=== PATIENT | male | born 1995 | race African-American/Black ===

== ENCOUNTER 2020-10-03 23:44 | Emergency (ER) | payer OTHER ==
[2020-10-04 00:01] VITALS: BP 137/83
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
== END 2020-10-04 00:55 | disposition home or self-care (01) ==
LOC: ED 23:44
DX: S60.212A Contusion of left wrist, initial encounter (principal); M79.662 Pain in left lower leg; V48.5XXA Car driver injured in noncollision transport accident in traffic accident, initial encounter; Y92.410 Unspecified street and highway as the place of occurrence of the external cause
CPT/HCPCS: 99282; 99283